=== PATIENT | male | born 1985 | race Hispanic/Latino ===

== ENCOUNTER 2025-02-23 15:59 | Emergency (ER) | payer OTHER ==
[2025-02-23] MEDS ORDERED: Ibuprofen 600 MG TAB ONE (17:01)
== END 2025-02-23 17:09 | disposition home or self-care (01) ==
LOC: MADERS 15:59
DX: M62.838 Other muscle spasm (principal); M79.2 Neuralgia and neuritis, unspecified; E66.01 Morbid (severe) obesity due to excess calories; F17.220 Nicotine dependence, chewing tobacco, uncomplicated
CPT/HCPCS: 99283